=== PATIENT | female | born 1935 | race Caucasian/White ===

== ENCOUNTER 2021-06-26 09:29 | Day surgery (SDC) | payer MEDICARE, BC ==
[~2021-06-26] VITALS: Ht 172.7 cm; Wt 96.3 kg
[~2021-06-26 09:29] MED LIST: GLUCOPHAGE1000 M1 PO; INSULANI; LEVOTHYROXINE150 MC7 PO; Lopressor 25 mg25 MG PO; MONT10T PO; Prinivil10 MG PO; SYMBICORT 160-4.6 GM
[2021-06-26] MEDS ORDERED: NOVOLOG100 UNIT/2 SQ (10:27)
[2021-06-26] MEDS ORDERED: MYRBETRIQ50 MG PO (10:27)
[2021-06-26] MEDS ORDERED: METF500 PO (10:27)
--- NOTE | 2021-06-26 10:33 | NUR ---
06/26/21 Stephanie3 Hailey Brennan CALL LIGHT WITHIN REACH.
--- NOTE | 2021-06-26 11:51 | NUR ---
06/26/21 1151 Baldev No 1 MG EPI ADDED TO EACH OF THE FIRST 3 BAGS OF LR FOR IRRIGATION AT [facility] PER ORDER.
== END 2021-06-26 14:10 | disposition home or self-care (01) ==
LOC: ORSCSDS 09:29
PROVIDERS: Orthopaedic Surgery
PROC: 0LQ24ZZ Repair Left Shoulder Tendon, Percutaneous Endoscopic Approach (ICD-10-PCS; principal; 2021-06-26 11:00)
PROC: 0RNK4ZZ Release Left Shoulder Joint, Percutaneous Endoscopic Approach (ICD-10-PCS; principal; 2021-06-26 11:00)
DX: M75.112 Incomplete rotator cuff tear or rupture of left shoulder, not specified as traumatic (principal); M75.22 Bicipital tendinitis, left shoulder; M75.42 Impingement syndrome of left shoulder; M19.012 Primary osteoarthritis, left shoulder; I10 Essential (primary) hypertension; I25.10 Atherosclerotic heart disease of native coronary artery without angina pectoris; J45.909 Unspecified asthma, uncomplicated; E11.9 Type 2 diabetes mellitus without complications; G47.33 Obstructive sleep apnea (adult) (pediatric); Z79.899 Other long term (current) drug therapy; Z79.4 Long term (current) use of insulin
CPT/HCPCS: 82947; C1713; C9781; J0171; J0690; J1100; J1885; J2250; J2405; J2704; J3010; J7120

== ENCOUNTER 2021-09-26 12:50 | Emergency (ER) | payer MEDICARE, BC ==
[~2021-09-26] VITALS: Ht 172.7 cm; Wt 97.5 kg
[~2021-09-26 12:50] MED LIST changes: +METF500 PO; +MYRBETRIQ50 MG PO; +NOVOLOG100 UNIT/2 SQ
== END 2021-09-26 17:00 | disposition home or self-care (01) ==
LOC: ER 12:50
DX: S01.112A Laceration without foreign body of left eyelid and periocular area, initial encounter (principal); M25.512 Pain in left shoulder; E11.9 Type 2 diabetes mellitus without complications; W01.198A Fall on same level from slipping, tripping and stumbling with subsequent striking against other object, initial encounter; Z98.890 Other specified postprocedural states; Z79.899 Other long term (current) drug therapy; Z79.4 Long term (current) use of insulin
CPT/HCPCS: 12051; 99283-25